=== PATIENT | male | born 1940 | race Caucasian/White ===

== ENCOUNTER 2016-11-28 08:57 | Emergency (ER) | payer MEDICARE, MEDICAID ==
[~2016-11-28] VITALS: Ht 170.2 cm; Wt 91.0 kg
[~2016-11-28 08:57] MED LIST: APIX5TAB PO; ATOR40TA70 PO; GLIP10TA10 PO; HYDR25TA PO; METF-246 PO; METO50TA5 PO; PIOG30TA2 PO
[2016-11-28] MEDS ORDERED: SODIUM CHLORIDE 0.9% 1,000 ML IV ONE (09:50)
[2016-11-28] MEDS ORDERED: INSULIN REGULAR (HUMULIN R) 300UNITS/3ML SUBCUT ONE (10:00)
[2016-11-28 10:11] LABS: BASOPHILS % 0.7 % (0.0-2.0); EOSINOPHILS % 2.7 % (0.0-5.0); HEMATOCRIT. 41.6 % (42.0-52.0); LYMPHOCYTES % 24.9 % (20.0-50.0); MEAN CORPUSCULAR HEMOGLOBIN 29.8 pg (28.0-32.0); MEAN CORPUSCULAR HGB CONC 33.5 g/dL (31.0-37.0); MEAN CORPUSCULAR VOLUME 88.9 fL (80.0-94.0); MEAN PLATELET VOLUME 7.9 fl (7.4-10.4); NEUTROPHILS % 65.7 % (40.0-76.0); PLATELET 173 x1000/uL (130-400); RED BLOOD CELL COUNT 4.68 mill/uL (4.7-6.1); RED CELL DISTRIBUTION WIDTH 13.7 % (11.6-14.6); WHITE BLOOD COUNT 5.8 x1000/uL (4.5-11.0)
[2016-11-28 10:19] LABS: INR 1.1; PROTHROMBIN TIME 11.2 sec
[2016-11-28 10:27] LABS: ALANINE AMINOTRANSFERASE 25 IU/L (13-61); ANION GAP 11; CALCIUM 8.5 mg/dL (8.5-10.1); CARBON DIOXIDE 30 mEq/L (21-32); CHLORIDE 102 mEq/L (98-107); INDEX HEMOLYSI 1 (1-3); INDEX ICTERIC 1 (1-4); INDEX LIPEMIC 1 (1-3); TROPONIN I < 0.02 ng/mL (0.00-0.04); UREA NITROGEN BLOOD 24 mg/dL (7-21); eGFR > 60 mL/min (>60)
[2016-11-28 10:46] LABS: CLARITY URINE CLEAR (CLEAR); COLOR URINE YELLOW (YELLOW); GLUCOSE URINE 3+ (NEGATIVE); KETONES URINE NEGATIVE (NEGATIVE); LEUKOCYTE ESTERASE URINE NEGATIVE (NEGATIVE); NITRITE URINE NEGATIVE (NEGATIVE); OCCULT BLOOD URINE NEGATIVE (NEGATIVE); PROTEIN URINE NEGATIVE (NEGATIVE); SPECIFIC GRAVITY URINE 1.019 (1.005-1.030)
[2016-11-28 10:49] LABS: BACTERIA URINE NONE SEEN; CALCIUM PHOSPHATE CRYSTALS UR NONE SEEN /lpf; RBC URINE 0-2 /hpf (0-2); SQUAMOUS EPITHELIAL CELL URINE NONE SEEN /lpf (RARE/1+); WAXY CASTS URINE NONE SEEN /lpf; WBC URINE NONE SEEN /hpf (0-2); YEAST URINE NONE SEEN
[2016-11-28 11:33] VITALS: BP 156/93
== END 2016-11-28 12:35 | disposition home or self-care (01) ==
LOC: ER 09:32
DX: H53.8 Other visual disturbances (principal); E11.65 Type 2 diabetes mellitus with hyperglycemia; I10 Essential (primary) hypertension; H53.2 Diplopia; I48.91 Unspecified atrial fibrillation; Z79.01 Long term (current) use of anticoagulants; Z79.84 Long term (current) use of oral hypoglycemic drugs
CPT/HCPCS: 36415; 70450; 71010; 80053; 81001; 82962; 84484; 85025; 85610; 87086; 93005; 96360; 96372; 99285; J1815; J7030

== ENCOUNTER → 2017-02-12 | Outpatient (CLI) | payer MEDICARE, MEDICAID ==
[~2017-02-12] MED LIST changes: -METF-246 PO; +METF10002 PO
== END | disposition home or self-care (01) ==
LOC: NM 07:18
PROVIDERS: ATTEND Internal Medicine Endocrinology, Diabetes & Metabolism
DX: E05.90 Thyrotoxicosis, unspecified without thyrotoxic crisis or storm (principal)
CPT/HCPCS: 78014; A9516

== ENCOUNTER 2017-03-20 21:27 | Inpatient (IN) | payer MEDICARE, MEDICAID ==
[~2017-03-20] VITALS: Ht 175.3 cm; Wt 92.5 kg
[~2017-03-20 21:27] MED LIST changes: +PIOG30TA10 PO; -PIOG30TA2 PO
[2017-03-20] MEDS ORDERED: SODIUM CHLORIDE 0.9% 1,000 ML IV ONE (22:10)
[2017-03-20 22:45] LABS: HEMATOCRIT. 33.8 % (42.0-52.0); HEMOGLOBIN. 11.8 g/dL (14.0-18.0); MEAN CORPUSCULAR HEMOGLOBIN 30.9 pg (28.0-32.0); MEAN CORPUSCULAR VOLUME 89.1 fL (80.0-94.0); PLATELET 150 x1000/uL (130-400); RED CELL DISTRIBUTION WIDTH 14.2 % (11.6-14.6)
[2017-03-20 22:52] LABS: INR 1.1; PROTHROMBIN TIME 11.5 sec
[2017-03-20 22:57] LABS: CARBON DIOXIDE 31 mEq/L (21-32); CHLORIDE 104 mEq/L (98-107)
[2017-03-20 23:27] LABS: PLATELET ESTIMATE NORMAL
[2017-03-21] MEDS ORDERED: DEXTROSE 10% WATER 500 ML IV ONE
[2017-03-21] MEDS ORDERED: DEXTROSE 50% WATER 50ML SYRINGE IV ONE (00:45)
[2017-03-21 09:07] LABS: CLARITY URINE CLEAR (CLEAR); COLOR URINE YELLOW (YELLOW); GLUCOSE URINE 2+ (NEGATIVE); KETONES URINE NEGATIVE (NEGATIVE); LEUKOCYTE ESTERASE URINE NEGATIVE (NEGATIVE); NITRITE URINE NEGATIVE (NEGATIVE); OCCULT BLOOD URINE NEGATIVE (NEGATIVE); PROTEIN URINE NEGATIVE (NEGATIVE); SPECIFIC GRAVITY URINE 1.013 (1.005-1.030); UROBILINOGEN URINE 0.2 E.U./dL (0.2-1.0)
[2017-03-21] MEDS ORDERED: CLONIDINE 0.1MG TABLET PO PRN (11:45)
[2017-03-21] MEDS ORDERED: DEXTROSE 50% WATER 50ML SYRINGE IV PRN (11:45)
[2017-03-21] MEDS ORDERED: ONDANSETRON HCL 4MG/2ML VIAL IV PRN (11:45)
[2017-03-21] MEDS ORDERED: MAGNESIUM/ALUMINUM HYDROXIDE/SIMETHICONE 30ML UDC PO PRN (11:45)
[2017-03-21] MEDS ORDERED: ACETAMINOPHEN 325MG TABLET PO PRN (11:45)
[2017-03-21 12:00] VITALS: BP 121/70
[2017-03-21] MEDS: BLOOD SUGAR DIAGNOSTIC STRIP TEST SCH ×3 (12:34→21:00)
[2017-03-21] MEDS: INSULIN LISPRO 100 UNITS/ML SUBCUT SCH ×3 (12:50→22:48)
[2017-03-21 16:00] VITALS: BP 121/76
[2017-03-21] MEDS: APIXABAN 5 MG TABLET PO SCH (18:11)
[2017-03-21] MEDS: SODIUM CHLORIDE 0.9% INJ 3ML FLUSH IVF SCH ×2 (18:11→22:41)
[2017-03-21 18:54] VITALS: BP 121/70
[2017-03-21 20:00] VITALS: BP 144/84
[2017-03-21] MEDS ORDERED: ATORVASTATIN CALCIUM 20MG TABLET PO SCH (21:00)
[2017-03-21] MEDS: METOPROLOL TARTRATE 25MG TABLET PO SCH (22:38)
[2017-03-22] VITALS: BP 102/61
[2017-03-22 04:00] VITALS: BP 126/75
[2017-03-22] MEDS: SODIUM CHLORIDE 0.9% INJ 3ML FLUSH IVF SCH ×2 (05:30→15:06)
[2017-03-22] MEDS: BLOOD SUGAR DIAGNOSTIC STRIP TEST SCH ×3 (06:16→17:20)
[2017-03-22] MEDS: INSULIN LISPRO 100 UNITS/ML SUBCUT SCH ×3 (07:12→18:14)
[2017-03-22 08:07] VITALS: BP 114/72
[2017-03-22] MEDS: APIXABAN 5 MG TABLET PO SCH ×2 (09:23→17:36)
[2017-03-22] MEDS: METOPROLOL TARTRATE 25MG TABLET PO SCH (09:23)
[2017-03-22 12:00] VITALS: BP 122/73
[2017-03-22 16:00] VITALS: BP 115/75
[2017-03-22 18:47] VITALS: BP 115/75
== END 2017-03-22 19:30 | disposition home or self-care (01) | DRG 637 ==
LOC: ER 21:57 → 6EST 03-21 00:31 → EDBEDREQ 03-21 01:27 → EDBEDREQSVC 03-21 07:55 → ENRESERV 03-21 08:39
PROVIDERS: ADMIT Internal Medicine; ATTEND Internal Medicine
DX: E11.649 Type 2 diabetes mellitus with hypoglycemia without coma (principal); G93.41 Metabolic encephalopathy; I50.22 Chronic systolic (congestive) heart failure; E78.00 Pure hypercholesterolemia, unspecified; I11.0 Hypertensive heart disease with heart failure; I25.5 Ischemic cardiomyopathy; I48.2 Chronic atrial fibrillation; E11.51 Type 2 diabetes mellitus with diabetic peripheral angiopathy without gangrene; N28.9 Disorder of kidney and ureter, unspecified; Z86.73 Personal history of transient ischemic attack (TIA), and cerebral infarction without residual deficits; I73.9 Peripheral vascular disease, unspecified
CPT/HCPCS: 36415; 71010; 80053; 81001; 82962; 85025; 85610; 93005; 96361; 96374; 99285; J1815; J7030

== ENCOUNTER 2024-09-09 23:39 | Emergency (ER) | payer MEDICARE, MEDICAID ==
[~2024-09-09] VITALS: Ht 162.6 cm; Wt 65.3 kg
[~2024-09-09 23:39] MED LIST changes: -GLIP10TA10 PO; +METF-416 PO; -METF10002 PO; +METO-539 PO; -METO50TA5 PO
[2024-09-10] VITALS: O2SAT 100
[2024-09-10] MEDS: MECLIZINE 25MG TABLET PO ONE (01:45)
[2024-09-10 02:19] LABS: BASOPHILS % 0.7 % (0.0-2.0); EOSINOPHILS % 2.7 % (0.0-5.0); HEMATOCRIT. 36.4 % (42.0-52.0); HEMOGLOBIN. 12.2 g/dL (14.0-18.0); LYMPHOCYTES % 21.3 % (20.0-50.0); MEAN CORPUSCULAR HEMOGLOBIN 31.1 pg (28.0-32.0); MEAN CORPUSCULAR HGB CONC 33.4 g/dL (31.0-37.0); MEAN CORPUSCULAR VOLUME 93.2 fL (80.0-94.0); MEAN PLATELET VOLUME 7.9 fl (7.4-10.4); MONOCYTES % 6.8 % (2.0-8.0); NEUTROPHILS % 68.5 % (40.0-76.0); PLATELET 135 x1000/uL (130-400); RED BLOOD CELL COUNT 3.91 mill/uL (4.7-6.1); RED CELL DISTRIBUTION WIDTH 14.2 % (11.6-14.6); WHITE BLOOD COUNT 3.8 x1000/uL (4.5-11.0)
[2024-09-10 02:31] LABS: CHLORIDE 108 mEq/L (98-107); POTASSIUM 4.1 mEq/L (3.5-5.1); SODIUM 142 mEq/L (136-145)
[2024-09-10 02:32] LABS: CARBON DIOXIDE 27 mEq/L (21-32)
[2024-09-10 02:33] LABS: CALCIUM 9.2 mg/dL (8.7-10.4)
[2024-09-10 02:37] LABS: CREATININE 0.8 mg/dL (0.6-1.3); GLUCOSE 126 mg/dL (70-105); UREA NITROGEN BLOOD 23 mg/dL (9-23)
[2024-09-10 02:38] LABS: TROPONIN I HIGH SENSITIVITY 10 ng/L (3.0-53)
[2024-09-10 03:29] LABS: PROTHROMBIN TIME 11.1 sec (9.6-11.0)
[2024-09-10 05:12] VITALS: BP 121/46; PULSE 65; RESP 16; TEMP 36.66960; O2SAT 99
== END 2024-09-10 05:15 | disposition home or self-care (01) ==
LOC: ER 23:39
DX: I10 Essential (primary) hypertension (principal); E11.9 Type 2 diabetes mellitus without complications; I48.91 Unspecified atrial fibrillation; Z79.01 Long term (current) use of anticoagulants
CPT/HCPCS: 36415; 71045; 80048; 83880; 84484; 85025; 93005; 99285